=== PATIENT | male | born 1955 | race Caucasian/White ===

== ENCOUNTER 2022-09-24 08:12 | Emergency (ER) | payer MEDICARE, OTHER, SELFPAY ==
[2022-09-24] VITALS (35 sets, daily range): BP systolic 58–123; BP diastolic 33–80; PULSE 116–147; RESP 36; TEMP 36.3–37; O2SAT 88–100; BMI 21.0
[2022-09-24] MEDS: 0.9 % SODIUM CHLORIDE 1000 ml 1,000 ML IV ×2 (08:30→09:30)
--- NOTE | 2022-09-24 08:34 | ED.GENADULT ---
HPI - General Adult General Time Seen by Provider: 08:34 Date Seen: 09/24/22 Chief complaint: Shortness of Breath/Dyspnea Stated complaint: Respiratory distress Time Seen by Provider: 09/24/22 08:33 Source: patient, family, EMS and RN notes reviewed Mode of arrival: EMS Limitations: other (On CPAP due to respiratory distress) History of Present Illness HPI narrative: Patient is a 66-year-old male brought in by EMS from home where he called for increasing difficulty breathing overnight. EMS found him to be in the 70% range and started CPAP. His notes he has maybe coughed a little but it is seemingly been more productive. His appetite is not been good since surgery. Really not eating much but is drinking Gatorade. She notes he has a greater than 50 year history of smoking but they are not aware of a diagnosis of COPD. She states they were recently at the [facility] [place] and she states the doctor mention COPD. They have not noted any fevers. He denies any blood in his stools or dark tarry stools but his states his stools are melanotic. He is 66 years old and [facility] with recent abdominal [facility]. He had an ile[facility] takedown at the [facility] on 09/13/2022. He did resume his Eliquis and Plavix on September 19 and September 18 respectively. He has not taken any of his medicines today. He has had a complex recent history. On 06/12/2021 he was reportedly diagnosed with COVID here. Patient did end up intubated for COVID for 9 days. 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 Then on 09/23/2022 he was transferred from [place] to [place] where they evacuated a clot from his brain long arm and leg per his . When asked if he had a stroke she stated yes he did have a stroke. Sounds as he if had a thrombectomy. Current medications on his list: Eliquis 5 mg b.i.d., atorvastatin 80 mg daily, Plavix 75 mg daily, B12 1000 mcg daily, ferrous sulfate 325 mg daily metoprolol tartrate 25 mg, 1/2 tablet b.i.d. Related Data Previous Rx's Medication Instructions Recorded metoprolol tartrate 25 mg tablet 12.5 mg PO BID #90 tabs 08/05/22 Allergies Allergy/AdvReac Type Severity Reaction Status Date / Time No Known Drug Allergies Allergy Verified 09/24/22 08:20 PFS PFS Social History Smoking Status: Former smoker Do you use any of these nicotine containing products: None How often do you have a drink containing alcohol: 4 or more times a week How many standard drinks containing alcohol do you have on a typical day: 1 or 2 How often do you have six or more drinks on one occasion: Never AUDIT-C Alcohol total score: 4 Non-prescribed substance use: denies use Exam Const: Vital Signs, click to edit/add: Vital Signs - 24 hr 09/24/22 08:20 09/24/22 09:33 09/24/22 08:27 Temperature 98.6 F Pulse Rate Pulse Rate [Apical ] 134 H Respiratory Rate 36 H Blood Pressure 84/60 L Blood Pressure [Le ft Upper Arm] 73/53 L Pulse Oximetry 94 Oxygen Delivery Me thod Room Air CPAP Fraction of Inspir ed Oxygen 09/24/22 08:32 09/24/22 08:33 09/24/22 08:34 Temperature Pulse Rate Pulse Rate [Apical ] Respiratory Rate Blood Pressure 58/33 L 73/57 L 70/54 L Blood Pressure [Le ft Upper Arm] Pulse Oximetry Oxygen Delivery Me thod Fraction of Inspir ed Oxygen 09/24/22 08:36 09/24/22 08:40 09/24/22 08:41 Temperature Pulse Rate 136 H 137 H 137 H Pulse Rate [Apical ] Respiratory Rate Blood Pressure 78/64 L Blood Pressure [Le ft Upper Arm] Pulse Oximetry 99 99 99 Oxygen Delivery Me thod Fraction of Inspir ed Oxygen 09/24/22 08:51 09/24/22 08:56 09/24/22 09:00 Temperature Pulse Rate 137 H 128 H Pulse Rate [Apical ] Respiratory Rate Blood Pressure 76/58 L Blood Pressure [Le ft Upper Arm] Pulse Oximetry 100 97 Oxygen Delivery Me thod Fraction of Inspir ed Oxygen 09/24/22 09:31 09/24/22 09:32 09/24/22 09:40 Temperature Pulse Rate 131 H 134 H Pulse Rate [Apical ] Respiratory Rate Blood Pressure 83/47 L Blood Pressure [Le ft Upper Arm] Pulse Oximetry 94 95 Oxygen Delivery Me thod Fraction of Inspir ed Oxygen 09/24/22 09:42 09/24/22 09:51 09/24/22 09:53 Temperature 97.3 F L Pulse Rate 136 H 142 H Pulse Rate [Apical ] Respiratory Rate Blood Pressure 77/48 L 71/49 L Blood Pressure [Le ft Upper Arm] Pulse Oximetry 96 94 Oxygen Delivery Me thod Fraction of Inspir ed Oxygen 09/24/22 10:04 09/24/22 10:00 09/24/22 10:01 Temperature Pulse Rate 147 H 137 H Pulse Rate [Apical ] Respiratory Rate Blood Pressure 76/53 L Blood Pressure [Le ft Upper Arm] Pulse Oximetry 89 88 Oxygen Delivery Me thod Fraction of Inspir ed Oxygen 0.30 09/24/22 10:10 09/24/22 10:11 09/24/22 10:18 Temperature Pulse Rate 144 H 136 H 136 H Pulse Rate [Apical ] Respiratory Rate Blood Pressure 82/47 L 73/47 L Blood Pressure [Le ft Upper Arm] Pulse Oximetry 95 92 93 Oxygen Delivery Me thod Fraction of Inspir ed Oxygen 09/24/22 10:20 09/24/22 10:21 09/24/22 10:26 Temperature Pulse Rate 137 H 136 H 134 H Pulse Rate [Apical ] Respiratory Rate Blood Pressure 77/34 L 107/72 Blood Pressure [Le ft Upper Arm] Pulse Oximetry 94 95 88 Oxygen Delivery Me thod Fraction of Inspir ed Oxygen 09/24/22 10:30 Temperature Pulse Rate 136 H Pulse Rate [Apical ] Respiratory Rate Blood Pressure Blood Pressure [Le ft Upper Arm] Pulse Oximetry 92 Oxygen Delivery Me thod Fraction of Inspir ed Oxygen Patient is on CPAP, looks pale but is able to talk in short phrases. Sclera clear conjugate gaze. Pupils seem to be equal and round. Moving his extremities purposefully, no noted deficit in strength or sensory at this time. Anteriorly do not hear any crackles, lungs sounds are somewhat distant but no wheezing. Can hear faint underlying heart sounds and he is tachycardic do not appreciate any murmur. Belly seems mildly distended to me but he states he is not having significant tenderness. He has a lower abdominal incision that is without erythema, there is some surrounding bruising but no drainage. I do not feel any masses, patient states his abdomen is not tender when I palpate. He has no lower extremity edema. He is frail appearing, pale appearing. 8:55 a.m.: Seems to have a little bit more color to his cheeks. Has been complaining of severe posterior head and neck pain which he believes is the strap from the CPAP. He unfortunately has a abbott and mustache, he does not want the shaved. He can mobilize his neck. The head and neck started bothering him after the CPAP were put on. Course Course Hospital Course: Patient is hypotensive, respiratory distress. His initial portable chest x-ray my preliminary read shows changes that look COVID like with infiltrates. This could be pneumonia, recurrent COVID or residual change from prior COVID. He has 1 L of normal saline going, nursing staff were attempting to get a 2nd IV and will start a 2nd of L of fluids. I would really like hemoglobin on him to see if he actually needs blood. May need to consider pressors, obviously need to consider infectious etiology as well. We will get a full complement of labs. Have alerted are ED staff that we need to look for an ICU bed. They will start doing so. Reevaluation(s) Reevaluation #1: Patient is going over to get advanced imaging. RT is accompanying him. Nursing staff will just be starting the 2nd L on him. His weight in February was 64 kilos giving him 1920 mL for a 30 mils per kilos bolus for sepsis. Hopefully we will have hemoglobin quickly here. I have discussed with his family that is here that at this point ICU beds are seemingly not available. We have contacted the [facility], [place], [place], [place]/[facility]. They will be calling [facility], [facility] facilities. I have reviewed with family that if Tima is getting into further medical difficulties and we are not able to secure an appropriate medical facility, I have significant limits to any advanced level cares that he might need. At this time, I am quite concerned about his outcome if we cannot secure and advanced level of care for him quickly. Time: 09:16 Reevaluation #2: Have reviewed with patient that he has sepsis, probably from a pulmonary source with pneumonia. The band is really bothering the back of his head from the CPAP but reviewed with him he needs to keep that on. Will try a dose of Tylenol, think he stable enough to take the CPAP off briefly to get a dose of Tylenol. He is still tachypneic, potassium has come back low. I have ordered Zosyn and vancomycin for sepsis protocol. Also ordered some IV potassium as his potassium came back at 2.7. His current hemoglobin [facility] 8.[facility] 7.8. Thus, does not need a transfusion at this point. His chest CT certainly is looking like there is pneumonia. Am awaiting the formal over reads of his CT imaging. Time: 09:59 Reevaluation #3: Was just in with patient. He really wanted some Tylenol for the pain in the back of his head. We did order a 1000 mg oral Tylenol and patient took that was some water quite easily. Taking off the mask for the CPAP though just briefly did cause hypoxia into the mid to upper 80s. We got his mask back on quickly. He had a little period of compensatory increased tachypnea into the 40s but then back down into the 30s where he had been stable. His coloration has improved, he is remaining tachypneic but is still quite lucid and conversive with us. He has started the vancomycin, I believe Zosyn is complete. He has some potassium 10 mEq IV started. We did start norepinephrine and at our lowest dosage on our protocol, blood pressure was up to 107 systolic, initial map in the 70s. We will continue to follow this. He has completed his 2 L of normal saline. He will be getting more volume with the antibiotics and the potassium going in. Have discussed intubation with patient and would prefer to not have to be intubated. Respiratory therapy and I have discussed the situation, feel that he is not decompensating at this time, he is getting treatments to intervene for his pneumonia and sepsis. He is not quite at the 2 hour marker to repeat a lactate, EMS will be here momentarily for transfer. I feel it is reasonable to continue him on this airway management, give him a. To see if he may improve with initiation of the antibiotics. We are not going to delay his transfer to await our 2 hour lactate. Time: 10:32 Consultations Consultation #1: 12 minutes was spent on the phone with Dr. Nieves from [facility]. Patient has been accepted to the ICU there. Will make a disc of the images to make sure Dr. Nieves gets these. He did discuss intubation with me. I will talk to the patient about that again. Patient was unsure when he initially came in about being intubated. I will also talked to respiratory therapy as patient just came back from getting his CT scans. I have not seen him since he was over in the scanner. Will need to reassess this. Did discuss with Dr. Nieves that I may need to initiate nor epinephrine in this patient as well. Reviewed some of the labs that were coming back while I was on the phone. It appears that this is sepsis for this patient with underlying etiology being pneumonia. Time: 09:34 Vital Signs Vital signs: Initial Vital Signs Temperature 98.6 F 09/24/22 08:20 Temperature Source Temporal Artery Scan 09/24/22 08:20 Pulse Rate 134 H 09/24/22 08:20 Pulse Rhythm 09/24/22 08:20 Respiratory Rate 36 H 09/24/22 08:20 Blood Pressure 73/53 L 09/24/22 08:20 Blood Pressure Mean 59 09/24/22 08:20 Blood Pressure Position Supine 09/24/22 08:20 Oxygen Delivery Method CPAP 09/24/22 08:20 Vital Signs Temperature 98.6 F 09/24/22 08:20 Pulse Rate 134 H 09/24/22 08:20 Respiratory Rate 36 H 09/24/22 08:20 Blood Pressure 73/53 L 09/24/22 08:20 Oxygen Delivery Method CPAP 09/24/22 08:20 Temperature 97.3 F L 09/24/22 09:53 Pulse Rate 136 H 09/24/22 10:30 Respiratory Rate 36 H 09/24/22 08:20 Blood Pressure 107/72 09/24/22 10:26 Pulse Oximetry 92 09/24/22 10:30 Oxygen Delivery Method CPAP 09/24/22 08:20 Fraction of Inspired Oxygen 0.30 09/24/22 10:04 Medical Decision Making Lab Data Lab results reviewed: Yes I reviewed the patient's lab results Labs: Lab Results 09/24/22 09/24/22 09/24/22 Range/Units 08:41 09:02 09:02 WBC 4.86 (4.50-11.00) K/uL RBC 2.88 L (4.30-5.90) m/uL Hgb 8.9 L (13.5-17.5) gm/dL Hct 27.1 L (37.0-53.0) % MCV 94 (80-100) fL MCH 31 (26-34) pg MCHC 33 (32-36) gm/dL RDW Coeff of Silva 14.1 (11.5-15.5) % Plt Count 646 H (140-440) K/uL Neut % (Auto) 85.8 H (42.0-72.0) % Lymph % (Auto) 10.5 L (20-44) % [place] % (Auto) 3.1 (0.0-11.0) % Eos % (Auto) 0.0 (0.0-7.0) % Baso % (Auto) 0.4 (0.0-3.0) % Neut # (Auto) 4.20 (1.7-7.0) K/uL Lymph # (Auto) 0.50 L (0.90-2.90) K/uL [place] # (Auto) 0.20 (0.00-0.90) K/UL Eos # (Auto) 0.00 (0.00-0.50) K/uL Baso # (Auto) 0.02 (0.00-0.30) K/uL Diff Slide Review Acceptable Review (Acceptable) ESR 102 H (2-15) mm/hr VBG pH (7.32-7.43) VBG pCO2 (40-50) mmHG VBG pO2 (25-47) mmHG VBG HCO3 (21-28) mmol/L Sodium (135-149) mmol/L Potassium (3.6-5.1) mmol/L Chloride (96-114) mmol/L Carbon Dioxide (20-32) mmol/L BUN (7-30) mg/dL Creatinine (0.5-1.5) mg/dL Estimated Creat Clear Estimated GFR ml/min Glucose (60-115) mg/dL Lactate (0.5-1.9) mmol/L Calcium (8.4-10.6) mg/dL Magnesium (1.5-2.6) mg/dL Total Bilirubin (0.1-1.5) mg/dL AST (12-35) U/L ALT (4-50) U/L Alkaline Phosphatase (40-150) U/L C-Reactive Protein (0.5-1.0) mg/dL NT-Pro-B Natriuret Pep pg/mL Total Protein (6.0-8.3) g/dL Albumin (3.3-5.0) g/dL Procalcitonin (<0.50) ng/mL Urine Color (Yellow) Urine Appearance (Clear) Urine pH (5.0-8.5) Ur Specific Emmet (1.000-1.030) Urine Protein (Negative) Urine Glucose (UA) (Negative) Urine Ketones (Negative) Urine Blood (Negative) Urine Nitrite (Negative) Urine Bilirubin (Negative) Urine Urobilinogen (0.2-1.0) Ur Leukocyte Esterase (Negative) Urine RBC (0-2) Urine WBC (0-5) Ur Squamous Epith Cells (None-Few) Amorphous Sediment (None) Urine Bacteria (None) SARS-CoV-2 (PCR) Negative SARS-CoV-2 (Negative) Influenza Type A (PCR) Negative PCR FLU A (Negative) Influenza Type B (PCR) Negative PCR FLU B (Negative) RSV (PCR) Negative PCR RSV (Negative) POC Troponin I (0.01-0.04) ng/ml 09/24/22 09/24/22 09/24/22 Range/Units 09:02 09:02 09:02 WBC (4.50-11.00) K/uL RBC (4.30-5.90) m/uL Hgb (13.5-17.5) gm/dL Hct (37.0-53.0) % MCV (80-100) fL MCH (26-34) pg MCHC (32-36) gm/dL RDW Coeff of Silva (11.5-15.5) % Plt Count (140-440) K/uL Neut % (Auto) (42.0-72.0) % Lymph % (Auto) (20-44) % [place] % (Auto) (0.0-11.0) % Eos % (Auto) (0.0-7.0) % Baso % (Auto) (0.0-3.0) % Neut # (Auto) (1.7-7.0) K/uL Lymph # (Auto) (0.90-2.90) K/uL [place] # (Auto) (0.00-0.90) K/UL Eos # (Auto) (0.00-0.50) K/uL Baso # (Auto) (0.00-0.30) K/uL Diff Slide Review (Acceptable) ESR (2-15) mm/hr VBG pH (7.32-7.43) VBG pCO2 (40-50) mmHG VBG pO2 (25-47) mmHG VBG HCO3 (21-28) mmol/L Sodium 134 L (135-149) mmol/L Potassium 2.7 L* (3.6-5.1) mmol/L Chloride 106 (96-114) mmol/L Carbon Dioxide 15 L (20-32) mmol/L BUN 36 H (7-30) mg/dL Creatinine 1.7 H (0.5-1.5) mg/dL Estimated Creat Clear 37.84 Estimated GFR 44 ml/min Glucose 110 (60-115) mg/dL Lactate 7.1 H* (0.5-1.9) mmol/L Calcium 6.9 L (8.4-10.6) mg/dL Magnesium 2.0 (1.5-2.6) mg/dL Total Bilirubin 3.1 H (0.1-1.5) mg/dL AST 40 H (12-35) U/L ALT 46 (4-50) U/L Alkaline Phosphatase 49 (40-150) U/L C-Reactive Protein 25.0 H (0.5-1.0) mg/dL NT-Pro-B Natriuret Pep 674 pg/mL Total Protein 5.3 L (6.0-8.3) g/dL Albumin 2.5 L (3.3-5.0) g/dL Procalcitonin 9.90 H (<0.50) ng/mL Urine Color (Yellow) Urine Appearance (Clear) Urine pH (5.0-8.5) Ur Specific Emmet (1.000-1.030) Urine Protein (Negative) Urine Glucose (UA) (Negative) Urine Ketones (Negative) Urine Blood (Negative) Urine Nitrite (Negative) Urine Bilirubin (Negative) Urine Urobilinogen (0.2-1.0) Ur Leukocyte Esterase (Negative) Urine RBC (0-2) Urine WBC (0-5) Ur Squamous Epith Cells (None-Few) Amorphous Sediment (None) Urine Bacteria (None) SARS-CoV-2 (PCR) (Negative) Influenza Type A (PCR) (Negative) Influenza Type B (PCR) (Negative) RSV (PCR) (Negative) POC Troponin I (0.01-0.04) ng/ml 09/24/22 09/24/22 09/24/22 Range/Units 09:02 09:02 09:55 WBC (4.50-11.00) K/uL RBC (4.30-5.90) m/uL Hgb (13.5-17.5) gm/dL Hct (37.0-53.0) % MCV (80-100) fL MCH (26-34) pg MCHC (32-36) gm/dL RDW Coeff of Silva (11.5-15.5) % Plt Count (140-440) K/uL Neut % (Auto) (42.0-72.0) % Lymph % (Auto) (20-44) % [place] % (Auto) (0.0-11.0) % Eos % (Auto) (0.0-7.0) % Baso % (Auto) (0.0-3.0) % Neut # (Auto) (1.7-7.0) K/uL Lymph # (Auto) (0.90-2.90) K/uL [place] # (Auto) (0.00-0.90) K/UL Eos # (Auto) (0.00-0.50) K/uL Baso # (Auto) (0.00-0.30) K/uL Diff Slide Review (Acceptable) ESR (2-15) mm/hr VBG pH 7.271 L (7.32-7.43) VBG pCO2 37 L (40-50) mmHG VBG pO2 56.5 H (25-47) mmHG VBG HCO3 17 L (21-28) mmol/L Sodium (135-149) mmol/L Potassium (3.6-5.1) mmol/L Chloride (96-114) mmol/L Carbon Dioxide (20-32) mmol/L BUN (7-30) mg/dL Creatinine (0.5-1.5) mg/dL Estimated Creat Clear Estimated GFR ml/min Glucose (60-115) mg/dL Lactate (0.5-1.9) mmol/L Calcium (8.4-10.6) mg/dL Magnesium (1.5-2.6) mg/dL Total Bilirubin (0.1-1.5) mg/dL AST (12-35) U/L ALT (4-50) U/L Alkaline Phosphatase (40-150) U/L C-Reactive Protein (0.5-1.0) mg/dL NT-Pro-B Natriuret Pep pg/mL Total Protein (6.0-8.3) g/dL Albumin (3.3-5.0) g/dL Procalcitonin (<0.50) ng/mL Urine Color Yellow (Yellow) Urine Appearance Clear (Clear) Urine pH 5.5 (5.0-8.5) Ur Specific Emmet 1.020 (1.000-1.030) Urine Protein 2+ A (Negative) Urine Glucose (UA) Negative (Negative) Urine Ketones Negative (Negative) Urine Blood 1+ A (Negative) Urine Nitrite Negative (Negative) Urine Bilirubin 2+ A (Negative) Urine Urobilinogen 2.0 A (0.2-1.0) Ur Leukocyte Esterase Negative (Negative) Urine RBC 0-2 (0-2) Urine WBC 0-2 (0-5) Ur Squamous Epith Cells Few (None-Few) Amorphous Sediment Moderate A (None) Urine Bacteria Many A (None) SARS-CoV-2 (PCR) (Negative) Influenza Type A (PCR) (Negative) Influenza Type B (PCR) (Negative) RSV (PCR) (Negative) POC Troponin I 0.01 (0.01-0.04) ng/ml Blood cultures, urine culture pending. Imaging Data CT scan - head: Attestation: I have reviewed the pertinent imaging results. My impression: A my preliminary read of this patient's head CT, see no acute bleed. Need to await radiology over read as well. Radiologist's impression: Patient: TIMA ANN Facility:?[facility] Patient ID:?[id number] Site Patient ID:?[id number]. Site :?[id number] Study:?CT Head WO-09/24/2022 9:33:03 AM Ordering Physician:Willie Godoy Final Report: INDICATION: c/o severe DANIELLE INDICATION: Severe headache. TECHNIQUE: CT head without contrast. Coronal/sagittal reconstruction images. COMPARISON: None FINDINGS: CSF spaces: Within normal limits for age. Brain parenchyma: The albrecht-white differentiation is normal. No sign of mass, hemorrhage, or midline shift. Skull base and calvarium: The visualized paranasal sinuses and mastoid air cells are clear. The visualized orbits are grossly unremarkable. No skull fractures. IMPRESSION: 1. There is no acute intracranial hemorrhage, shift of midline structures, or mass effect. 2. No hyperdense MCA sign. 3. No acute loss of albrecht-white matter differentiation is seen. Dictated by Noé Martinez MD @ 09/24/2022 10:00:26 AM Please note that all CT scans at this facility use dose modulation, iterative reconstruction, and/or weight-based dosing when appropriate to reduce radiation dose to as low as reasonably achievable. Dictated by: Noé Martinez MD @ 09/24/2022 10:00:33 (Electronic Signature) Chest x-ray: Attestation: I have reviewed the pertinent imaging results. My impression: See a multifocal infiltrate on the right side. Radiologist's impression: Patient: TIMA ANN Facility:?[facility] Patient ID:?[id number] Site Patient ID:?[id number]. Site :?[id number] Study:?XRay Chest PCXR-09/24/2022 8:52:50 AM Ordering Physician:Willie Godoy Final Report: INDICATION: respiratory distress HISTORY: Respiratory distress. COMPARISON: None. TECHNIQUE: Chest, 1 view. FINDINGS: There is volume loss in the right hemithorax, with mixed interstitial/alveolar opacities, most pronounced in the right lower lung zone. No pneumothorax or deep sulcus sign. Central airway is normal. No sizable pleural effusion. library monitor leads overlie the patient. Heart size and pulmonary vasculature are within normal limits IMPRESSION: 1. Mild volume loss with interstitial and alveolar opacities in the right lung. 2. When clinically appropriate, consider CT scan for further assessment. Dictated by Noé Martinez MD @ 09/24/2022 9:35:01 AM Dictated by: Noé Martinez MD @ 09/24/2022 09:35:08 (Electronic Signature) ECG Data Attestation: I personally reviewed and interpreted this ECG as follows: (Sinus tachycardia, 136 beats per minute. Nonspecific ST segment changes. QT corrected 460 milliseconds.) Prior ECG tracings: not available for review Critical Care Time Critical Care Time Critical Care Time: Yes Attestation: The patient required my highest level preparedness to intervene emergently and I personally spent this critical care time directly and personally managing the patient. This critical care time included: Obtaining a history; Examining the patient; Pulse oximetry; Ordering and reviewing of studies; Arranging urgent treatment with development of a management plan; Evaluation of patients response to treatment; Frequent reassessment discussions with other providers. This critical care time was performed to assess and manage the high probability of imminent life-threatening deterioration that could result in multiorgan failure. It was exclusive of separate billable procedures and treating other patients and teaching time. Total Critical Care Time in Minutes: 145 Discharge Plan Discharge Clinical Impression: Severe sepsis, Pneumonia Patient Disposition: [facility] Condition: Critical Prescriptions: No Action metoprolol tartrate 25 mg tablet 12.5 mg PO BID Qty: 90 0RF Follow Up/Referrals: Kim Flores APRN, SLOT ATTENDANT [Primary Care Provider] - Discharge Comment: Transfer to [facility] in [place]
--- NOTE | 2022-09-24 08:41 | CRLHL7_ITS ---
For Patients: As a result of the Century Cures Act, medical imaging exams and procedure reports are released immediately into your electronic medical record. You may view this report before your referring provider. If you have questions, please contact your health care provider. INDICATION: respiratory distress HISTORY: Respiratory distress. COMPARISON: None. TECHNIQUE: Chest, 1 view. FINDINGS: There is volume loss in the right hemithorax, with mixed interstitial/alveolar opacities, most pronounced in the right lower lung zone. No pneumothorax or deep sulcus sign. Central airway is normal. No sizable pleural effusion. monitor tech leads overlie the patient. Heart size and pulmonary vasculature are within normal limits IMPRESSION: 1. Mild volume loss with interstitial and alveolar opacities in the right lung. 2. When clinically appropriate, consider CT scan for further assessment. Dictated by Noé Martinez MD @ 09/24/2022 9:35:01 AM Dictated by: Noé Martinez MD @ 09/24/2022 09:35:08 (Electronically Signed)
--- NOTE | 2022-09-24 08:43 | CRLHL7_ITS ---
For Patients: As a result of the Century Cures Act, medical imaging exams and procedure reports are released immediately into your electronic medical record. You may view this report before your referring provider. If you have questions, please contact your health care provider. Indication: Respiratory distress recent ileostomy reversal Technique: Contrast CT chest abdomen and pelvis Comparison: CT chest and pelvis 10/28/2021 Findings: Normal caliber thoracic aorta. No pulmonary emboli are seen. Heart size is normal. There is no pericardial effusion. Centrilobular emphysema. Diffuse ill-defined centrilobular opacities primarily within right, to a lesser degree within the left lower lobe. There is some minimal interlobular septal thickening. Again seen is subpleural rounded opacity in the peripheral right upper lobe on series 8, image 56 is not significantly changed. Again seen is bronchiectasis and mild consolidation posterior right upper lobe this is decreased from the prior study with some cystic changes. Trace effusions. Filled esophagus. Pneumoperitoneum which likely is related to recent surgery. Right hemicolectomy. High density material at the ileal colo anastomosis could be the residual retained contrast. There is gaseous distension of the colon. There is collection of extraluminal gas at the anastomotic site anastomotic leak is not excluded. There is moderate amount of free fluid throughout the abdomen and pelvis there is peritoneal mild enhancement peritonitis not excluded. There is diffuse small bowel wall thickening which could be related to enteritis or reactive changes from possible peritonitis There is atherosclerotic changes of the abdominal aorta no aneurysm. Kidneys unremarkable too small to characterize low-attenuation lesions in the kidneys. Low-density lesion left hepatic lobe decreased in size from prior study incompletely assessed. Pancreas adrenal glands spleen unremarkable. Cholelithiasis. No suspicious bony lesions. Impression: 1. Right hemicolectomy with ileocolonic anastomosis. Gaseous distension of the colon could be related to ileus or mild component of obstruction. A collection of extraluminal air near the anastomosis site leak is not excluded. Left moderate to large amount of ascites there is peritoneal enhancement is could be related to peritonitis. There is diffuse bowel wall thickening of small bowel could be related to enteritis or reactive changes from possible peritonitis. 2. Pneumoperitoneum likely related to recent surgery. 3. Ill-defined centrilobular opacities diffusely in the right upper lobe to a lesser degree on the left could be infectious inflammatory could be related to pneumonia, pulmonary edema. Tiny effusions. 4. Subpleural right upper lobe opacity unchanged from prior study continued follow-up is recommended. Please note that all CT scans at this facility use dose modulation, iterative reconstruction, and/or weight-based dosing when appropriate to reduce radiation dose to as low as reasonably achievable. Dictated by Sol Reynolds MD @ 09/24/2022 10:46:26 AM (Electronically Signed)
--- NOTE | 2022-09-24 08:44 | CRLHL7_ITS ---
For Patients: As a result of the Cures Act, medical imaging exams and procedure reports are released immediately into your electronic medical record. You may view this report before your referring provider. If you have questions, please contact your health care provider. INDICATION: c/o severe DANIELLE INDICATION: Severe headache. TECHNIQUE: CT head without contrast. Coronal/sagittal reconstruction images. COMPARISON: None FINDINGS: CSF spaces: Within normal limits for age. Brain parenchyma: The albrecht-white differentiation is normal. No sign of mass, hemorrhage, or midline shift. Skull base and calvarium: The visualized paranasal sinuses and mastoid air cells are clear. The visualized orbits are grossly unremarkable. No skull fractures. IMPRESSION: 1. There is no acute intracranial hemorrhage, shift of midline structures, or mass effect. 2. No hyperdense MCA sign. 3. No acute loss of albrecht-white matter differentiation is seen. Dictated by Noé Martinez MD @ 09/24/2022 10:00:26 AM Please note that all CT scans at this facility use dose modulation, iterative reconstruction, and/or weight-based dosing when appropriate to reduce radiation dose to as low as reasonably achievable. Dictated by: Noé Martinez MD @ 09/24/2022 10:00:33 (Electronically Signed)
[2022-09-24 09:19] LABS: Basophils Absolute Auto 0.02 K/uL (0.00-0.30); Basophils Percent Auto 0.4 % (0.0-3.0); HCO3 VBG 17 mmol/L (21-28); Hematocrit 27.1 % (37.0-53.0); Hemoglobin* 8.9 gm/dL (13.5-17.5); Immature Granulocytes Abs Auto 0.01 K/uL (0.00-0.30); Immature Granulocytes Pct Auto 0.2 %; Lymphocytes Percent Auto 10.5 % (20-44); Mean Corpuscular HGB Conc 33 gm/dL (32-36); Mean Corpuscular Hemoglobin 31 pg (26-34); Mean Corpuscular Volume 94 fL (80-100); Monocytes Percent Auto 3.1 % (0.0-11.0); Neutrophils Percent Auto 85.8 % (42.0-72.0); PCO2 VBG 37 mmHG (40-50); PO2 VBG 56.5 mmHG (25-47); Platelet Count* 646 K/uL (140-440); RDW Coefficient of Variation % 14.1 % (11.5-15.5); Red Blood Count 2.88 m/uL (4.30-5.90); White Blood Count* 4.86 K/uL (4.50-11.00); pH VBG 7.271 (7.32-7.43)
[2022-09-24 09:23] LABS: Lactate* 7.1 mmol/L (0.5-1.9); Troponin, Point-of-Care* 0.01 ng/ml (0.01-0.04)
[2022-09-24 09:33] LABS: Slide Review Reflex Yes
[2022-09-24 09:33] LABS: PCR FLU A Negative PCR FLU A (Negative); PCR FLU B Negative PCR FLU B (Negative); PCR RSV Negative PCR RSV (Negative)
[2022-09-24 09:35] LABS: SARS PCR* Negative SARS-CoV-2 (Negative)
[2022-09-24 09:38] LABS: Albumin* 2.5 g/dL (3.3-5.0); Chloride* 106 mmol/L (96-114); Sodium* 134 mmol/L (135-149)
[2022-09-24 09:40] LABS: Creatinine* 1.7 mg/dL (0.5-1.5); Est. Creatinine Clearance* 37.84; Estimated Glomerular Filt Rate 44 ml/min
[2022-09-24 09:41] LABS: Alkaline Phosphatase* 49 U/L (40-150); Aspartate Amino Transferase* 40 U/L (12-35); Bilirubin Total* 3.1 mg/dL (0.1-1.5); Blood Urea Nitrogen* 36 mg/dL (7-30); Carbon Dioxide* 15 mmol/L (20-32); Glucose* 110 mg/dL (60-115); Total Protein* 5.3 g/dL (6.0-8.3)
[2022-09-24 09:42] LABS: Calcium* 6.9 mg/dL (8.4-10.6)
[2022-09-24 09:45] LABS: Slide Review Acceptable Review (Acceptable)
[2022-09-24 09:46] LABS: Potassium* 2.7 mmol/L (3.6-5.1)
--- NOTE | 2022-09-24 09:47 | ED.NURSE ---
Dr Olguin updated on potassium level
[2022-09-24 09:54] LABS: NT Pro B Type NatriureticPept* 674 pg/mL
[2022-09-24] MEDS: PIPERACILLIN/TAZOBACTAM 3.375 GM in 0.9 % SODIUM CHLORIDE Mini-bag 100 ML IVPB (09:54)
[2022-09-24 09:59] LABS: Erythrocyte SedimentationRate* 102 mm/hr (2-15)
[2022-09-24 10:08] LABS: Appearance Urine Clear (Clear); Bilirubin Urine 2+ (Negative); Blood Urine 1+ (Negative); Color Urine Yellow (Yellow); Glucose Urine Negative (Negative); Ketones Urine Negative (Negative); Leukocyte Esterase Urine Negative (Negative); Nitrite Urine Negative (Negative); Protein Urine 2+ (Negative); pH Urine 5.5 (5.0-8.5)
[2022-09-24 10:10] LABS: Alanine Aminotransferase* 46 U/L (4-50)
--- NOTE | 2022-09-24 10:15 | ED.NURSE ---
report was given to danielle marin at [facility]. ems was dispatched.
[2022-09-24 10:16] LABS: RBC Urine 0-2 (0-2); WBC Urine 0-2 (0-5)
[2022-09-24 10:17] LABS: Amorphous Sediment Urine Moderate; Bacteria Urine Many; Squamous Epithelial Cell Urine Few (None-Few)
[2022-09-24] MEDS: POTASSIUM CHLORIDE 10 MEQ/100 ML PIGGYBACK 100 MEQ IVPB (10:23)
[2022-09-24] MEDS: ACETAMINOPHEN 500 MG TABLET 1000 MG PO (10:27)
--- NOTE | 2022-09-24 11:00 | ED.NURSE ---
Pt and belongings transferred to [facility] in [place] via [facility]
--- NOTE | 2022-09-24 23:04 | ED.NURSE ---
Call from lab for critical result: positive blood cultures with gram negative bacteria on one of two blood cultures. Per lab, second blood culture not yet positive. Dr. Welch updated with this information and advises call to [facility] ICU in [place] ([phone]). Call to ICU and gave this information to [employer].
--- NOTE | 2022-09-25 10:24 | ED.NURSE ---
Pre-nino blood and urine culture results faxed to [facility] per hospital request. fax [phone]
== END 2022-09-24 11:00 | disposition short-term general hospital (02) ==
PROVIDERS: Emergency Provider Family Medicine; PCP Nurse Practitioner Family
DX: J18.9 Pneumonia, unspecified organism (principal); A41.9 Sepsis, unspecified organism
CPT/HCPCS: 36415; 70450; 71045; 71260; 74177; 80053; 81001; 82803; 83605; 83735; 83880; 84145; 84484; 85025; 85651; 86140; 87040; 87086; 87186; 87502; 87634; 87635; 93005; 94660; 94761; 96365; 96366; 99284; 99291; 99292; A9270; J2543; J3370; J3480; J7030; J7120; Q9967

== ENCOUNTER 2022-09-24 10:35 | Outpatient (CLI) | payer MEDICARE, OTHER, SELFPAY | END 2022-09-24 10:36 | disposition home or self-care (01) | LOC: AMB 10-04 19:56 | PROVIDERS: PCP Nurse Practitioner Family; Visit Provider Family Medicine | DX: R06.09 Other forms of dyspnea (principal); A41.9 Sepsis, unspecified organism | CPT/HCPCS: A0425; A0426 ==

== ENCOUNTER 2023-03-10 13:39 | Outpatient (CLI) | payer MEDICARE, OTHER, SELFPAY | END 2023-03-10 13:40 | disposition home or self-care (01) | LOC: WOUND 13:39 | PROVIDERS: PCP Nurse Practitioner Family; Visit Provider Nurse Practitioner Family | DX: Z43.2 Encounter for attention to ileostomy (principal); L89.813 Pressure ulcer of head, stage 3; L89.223 Pressure ulcer of left hip, stage 3; T81.32XA Disruption of internal operation (surgical) wound, not elsewhere classified, initial encounter; L89.893 Pressure ulcer of other site, stage 3 | CPT/HCPCS: 99215 ==

== ENCOUNTER 2023-03-17 13:06 | Outpatient (CLI) | payer MEDICARE, OTHER, SELFPAY | END 2023-03-17 13:07 | disposition home or self-care (01) | LOC: WOUND 13:06 | PROVIDERS: PCP Nurse Practitioner Family; Visit Provider Nurse Practitioner Family | DX: Z43.2 Encounter for attention to ileostomy (principal); L89.813 Pressure ulcer of head, stage 3; L89.223 Pressure ulcer of left hip, stage 3; L89.893 Pressure ulcer of other site, stage 3; L89.103 Pressure ulcer of unspecified part of back, stage 3 | CPT/HCPCS: 11042; 11043; 11045; 99213 ==

== ENCOUNTER 2023-04-03 15:42 | Outpatient (CLI) | payer MEDICARE, OTHER, SELFPAY | END 2023-04-03 15:43 | disposition home or self-care (01) | LOC: KYNREF 15:43 | PROVIDERS: PCP Nurse Practitioner Family; Visit Provider Nurse Practitioner Family | DX: R10.9 Unspecified abdominal pain (principal) | CPT/HCPCS: 81015; 87086; 87186 ==

== ENCOUNTER 2023-04-07 12:52 | Outpatient (CLI) | payer MEDICARE, OTHER, SELFPAY | END 2023-04-07 12:53 | disposition home or self-care (01) | LOC: WOUND 12:53 | PROVIDERS: PCP Nurse Practitioner Family; Visit Provider Nurse Practitioner Family | DX: L89.813 Pressure ulcer of head, stage 3 (principal); L89.893 Pressure ulcer of other site, stage 3; L89.103 Pressure ulcer of unspecified part of back, stage 3; L89.323 Pressure ulcer of left buttock, stage 3; Z43.2 Encounter for attention to ileostomy | CPT/HCPCS: 97597; 97598 ==

== ENCOUNTER 2023-04-11 03:59 | Emergency (ER) | payer MEDICARE, OTHER, SELFPAY ==
[2023-04-11 04:06] VITALS: BP 103/71; PULSE 68; RESP 18; TEMP 36.1; O2SAT 98; BMI 17.0
--- NOTE | 2023-04-11 04:28 | ED.GENADULT ---
HPI - General Adult General Chief complaint: Syncope/Fainted Stated complaint: syncope Time Seen by Provider: 04/11/23 04:19 History of Present Illness HPI narrative: Patient is a 67-year-old gentleman with complex past medical history including suprapubic catheter currently on dairy going treatment for UTI with Macrobid who has not been eating and drinking well and had a presyncopal episode at home tonight. Patient has a ostomy which is unchanged. He is tolerating the Macrobid and has open wounds most notably on his occiput which do not appear to be acutely infected at this time. The patient's woke up to help him with wound care and the patient appeared to be ready lose consciousness. Patient states he has no other significant symptoms although he does not answer questions very extensively. He has had no change in her suprapubic catheter and has no pain at this time. Family is concerned that he is not eating or drinking well. Related Data Home Medications Medication Instructions Recorded Confirmed amiodarone 100 mg tablet 200 mg PO QDAY 02/24/23 04/03/23 apixaban 2.5 mg tablet 2.5 mg PO BID 02/24/23 04/03/23 atorvastatin 40 mg tablet 40 mg PO .Bedtime 02/24/23 04/03/23 hydromorphone 4 mg tablet 4 mg PO Q4-6H PRN 02/24/23 04/03/23 oxycodone 5 mg tablet 5 mg PO Q4H PRN 02/24/23 04/03/23 pantoprazole 40 mg tablet,delayed 40 mg PO QDAY 02/24/23 04/03/23 release cyanocobalamin (vitamin B-12) 1,000 mcg PO DAILY 03/04/23 04/03/23 1,000 mcg capsule metoprolol succinate 25 mg 12.5 mg PO DAILY 03/04/23 04/03/23 tablet,extended release 24 hr Previous Rx's Medication Instructions Recorded metoprolol tartrate 25 mg tablet 12.5 mg (1/2 x 25 mg) PO BID #90 08/05/22 tabs ciprofloxacin HCl 500 mg tablet 500 mg PO BID 10 days #20 tabs 04/03/23 nitrofurantoin 100 mg PO Q12H 10 days #20 caps 04/07/23 monohydrate/macrocrystals 100 mg capsule (Macrobid) Allergies Allergy/AdvReac Type Severity Reaction Status Date / Time No Known Drug Allergies Allergy Verified 04/03/23 15:31 Review of Systems Status of ROS: Reports: 6 or more systems reviewed and unremarkable except as noted in History and below [facility] Medical History Stroke ?I63.9 - Cerebral infarction, unspecified (ICD-10) Pulmonary embolism ?I26.99 - Other pulmonary embolism without acute cor pulmonale (ICD-10) Patent foramen ovale ?Q21.12 - Patent foramen ovale (ICD-10) Multiple gallstones ?K80.20 - Calculus of gallbladder without cholecystitis without obstruction (ICD-10) Mass of right lobe of liver ?R16.0 - Hepatomegaly, not elsewhere classified (ICD-10) Atrial fibrillation with rapid ventricular response ?I48.91 - Unspecified atrial fibrillation (ICD-10) Paroxysmal atrial fibrillation ?I48.0 - Paroxysmal atrial fibrillation (ICD-10) ARDS (adult respiratory distress syndrome) ?J80 - Acute respiratory distress syndrome (ICD-10) History of alcohol abuse ?F10.11 - Alcohol abuse, in remission (ICD-10) Surgical History History of urologic surgery ?Z98.890 - Other specified postprocedural states (ICD-10) History of suprapubic catheter ?Z98.890 - Other specified postprocedural states (ICD-10) History of abdominal paracentesis ?Z98.890 - Other specified postprocedural states (ICD-10) Status post ileostomy ?Z93.2 - Ileostomy status (ICD-10) Family History Mother Heart disease Liver disease Other Ovarian cancer Social History Narrative: Former smoker, stopped during hospitalization Smoking Status: Former smoker Do you use any of these nicotine containing products: None Second hand tobacco smoke exposure: No How often do you have a drink containing alcohol: 4 or more times a week How many standard drinks containing alcohol do you have on a typical day: 1 or 2 How often do you have six or more drinks on one occasion: Never AUDIT-C Alcohol total score: 4 Non-prescribed substance use: denies use Exam Narrative: Exam Narrative: EXAM GENERAL: Patient appears cachectic and emaciated Eyes equal round reactive no scleral icterus THYROID: no thyroid nodules or thyromegaly. LYMPH: No supraclavicular or cervical lymphadenopathy. SKIN: Numerous skin tears and abrasions noted. No signs of acute infection. EXT: No dependent lower extremity pedal edema. HEART: Regular rate and rhythm with no murmurs, rubs, or gallops. LUNGS: Clear to auscultation bilaterally with no crackles or wheezes. ABD: Soft, non tender, non distended. Previous ostomy noted with suprapubic catheter also noted. PSYCH: Good eye contact, speech is not pressured. Const: Vital Signs, click to edit/add: Vital Signs - 24 hr 04/11/23 04:06 Temperature 97 F L Pulse Rate [Pulse Oximeter] 68 Respiratory Rate 18 Blood Pressure [Le ft Upper Arm] 103/71 Pulse Oximetry 98 Oxygen Delivery Me thod Room Air Course Course Hospital Course: Patient has a complex history as outlined. This time I did give him a L of normal saline I sent off a CBC basic metabolic panel and troponin. EKG is negative for acute abnormalities on my review. Will see how he feels after his L of saline and we will see his labs look. Vital Signs Vital signs: Initial Vital Signs Temperature 97 F L 04/11/23 04:06 Temperature Source Temporal Artery Scan 04/11/23 04:06 Pulse Rate 68 04/11/23 04:06 Respiratory Rate 18 04/11/23 04:06 Blood Pressure 103/71 04/11/23 04:06 Blood Pressure Mean 81 04/11/23 04:06 Blood Pressure Position Supine 04/11/23 04:06 Pulse Oximetry 98 04/11/23 04:06 Oxygen Delivery Method Room Air 04/11/23 04:06 Vital Signs Temperature 97 F L 04/11/23 04:06 Pulse Rate 68 04/11/23 04:06 Respiratory Rate 18 04/11/23 04:06 Blood Pressure 103/71 04/11/23 04:06 Pulse Oximetry 98 04/11/23 04:06 Oxygen Delivery Method Room Air 04/11/23 04:06 Temperature 97 F L 04/11/23 04:06 Pulse Rate 68 04/11/23 04:06 Respiratory Rate 18 04/11/23 04:06 Blood Pressure 103/71 04/11/23 04:06 Pulse Oximetry 98 04/11/23 04:06 Oxygen Delivery Method Room Air 04/11/23 04:06 Medical Decision Making MDM Narrative Medical decision making narrative: Patient is a complex 67-year-old gentleman comes in today after not feeling well with the urinary tract infection. UTI is growing out a Staph hominis which should be sensitive to his current Macrobid. His labs are reassuring with the exception of mild pre renal azotemia with a slight bump in his creatinine. He does have obvious cachexia as well as skin lesions suprapubic catheter in ostomy which are not acutely a bother him at this time. I did review his EKG and his troponin. His laboratory studies otherwise reasonably stable. I did give him 2 L of normal saline and recommended discharge with outpatient follow-up. I do note that his anion gap is 15 prior to hydration. Differential Diagnosis Differential Diagnosis: UTI CELLULITIS SEPSIS ACUTE MYOCARDIAL INFARCTION ANEMIA FAILURE TO THRIVE Lab Data Labs: Lab Results 04/11/23 Range/Units 04:48 WBC 8.98 (4.50-11.00) K/uL RBC 4.71 (4.30-5.90) m/uL Hgb 12.3 L (13.5-17.5) gm/dL Hct 37.9 (37.0-53.0) % MCV 81 (80-100) fL MCH 26 (26-34) pg MCHC 33 (32-36) gm/dL RDW Coeff of Silva 17.4 H (11.5-15.5) % Plt Count 414 (140-440) K/uL Neut % (Auto) 80.0 H (42.0-72.0) % Lymph % (Auto) 10.0 L (20-44) % [place] % (Auto) 7.1 (0.0-11.0) % Eos % (Auto) 0.8 (0.0-7.0) % Baso % (Auto) 0.3 (0.0-3.0) % Neut # (Auto) 7.20 H (1.7-7.0) K/uL Lymph # (Auto) 0.90 (0.90-2.90) K/uL [place] # (Auto) 0.60 (0.00-0.90) K/UL Eos # (Auto) 0.07 (0.00-0.50) K/uL Baso # (Auto) 0.03 (0.00-0.30) K/uL Sodium 132 L (135-149) mmol/L Potassium 4.1 (3.6-5.1) mmol/L Chloride 102 (96-114) mmol/L Carbon Dioxide 15 L (20-32) mmol/L BUN 48 H (7-30) mg/dL Creatinine 1.5 (0.5-1.5) mg/dL Estimated Creat Clear 35.26 Estimated GFR 51 ml/min Glucose 124 H (60-115) mg/dL Calcium 9.6 (8.4-10.6) mg/dL Troponin I < 0.01 L (0.01-0.04) ng/mL Discharge Plan Discharge Clinical Impression: Dehydration Patient Disposition: Home w/ Parent or Adult Condition: Stable Instructions: Dehydration (ED) Additional Instructions: Continue current medications Continue outpatient follow-up Hydrate as tolerated home. Activity Level: Activity as Tolerated Discharge Diet: Regular Prescriptions: No Action atorvastatin 40 mg tablet 40 mg PO .Bedtime Patient Comments: Patient is taking Atorvastatin 80mg at bedtime. amiodarone 100 mg tablet 200 mg PO QDAY Patient Comments: per spouse, taking 200 mg tablet daily. hydromorphone 4 mg tablet 4 mg PO Q4-6H PRN Patient Comments: instructions: Take 1 tab 60 min before dressing/ileostomy bag changes. oxycodone 5 mg tablet 5 mg PO Q4H PRN pantoprazole 40 mg tablet,delayed release (DR/EC) 40 mg PO QDAY apixaban 2.5 mg tablet 2.5 mg PO BID metoprolol succinate 25 mg tablet extended release 24 hr 12.5 mg PO DAILY cyanocobalamin (vitamin B-12) 1,000 mcg capsule 1,000 mcg PO DAILY metoprolol tartrate 25 mg tablet 12.5 mg PO BID Qty: 90 0RF Patient Comments: metoprolol succinate ER 25 mg, take 0.5 tablet (12.5 mg) daily. ciprofloxacin HCl 500 mg tablet 500 mg PO BID 10 Days Qty: 20 0RF nitrofurantoin monohyd/m-cryst [Macrobid] 100 mg capsule 100 mg PO Q12H 10 Days Qty: 20 0RF Rx Instructions: must administer with a meal/food Follow Up/Referrals: Kim Flores, MALG[place]ZATA, [employer] [Primary Care Provider] - Stand Alone Forms: MyHealth Info Instructions
[2023-04-11] MEDS: 0.9 % SODIUM CHLORIDE 1000 ml 1,000 ML IV ×2 (04:50→05:44)
[2023-04-11 05:04] LABS: Basophils Absolute Auto 0.03 K/uL (0.00-0.30); Basophils Percent Auto 0.3 % (0.0-3.0); Eosinophils Absolute Auto 0.07 K/uL (0.00-0.50); Eosinophils Percent Auto 0.8 % (0.0-7.0); Hematocrit 37.9 % (37.0-53.0); Hemoglobin* 12.3 gm/dL (13.5-17.5); Immature Granulocytes Abs Auto 0.16 K/uL (0.00-0.30); Immature Granulocytes Pct Auto 1.8 %; Mean Corpuscular HGB Conc 33 gm/dL (32-36); Mean Corpuscular Hemoglobin 26 pg (26-34); Mean Corpuscular Volume 81 fL (80-100); Monocytes Percent Auto 7.1 % (0.0-11.0); Platelet Count* 414 K/uL (140-440); RDW Coefficient of Variation % 17.4 % (11.5-15.5); Red Blood Count 4.71 m/uL (4.30-5.90); White Blood Count* 8.98 K/uL (4.50-11.00)
[2023-04-11 05:07] LABS: Chloride* 102 mmol/L (96-114); Potassium* 4.1 mmol/L (3.6-5.1); Sodium* 132 mmol/L (135-149)
[2023-04-11 05:10] LABS: Blood Urea Nitrogen* 48 mg/dL (7-30); Calcium* 9.6 mg/dL (8.4-10.6); Carbon Dioxide* 15 mmol/L (20-32); Creatinine* 1.5 mg/dL (0.5-1.5); Est. Creatinine Clearance* 35.26; Estimated Glomerular Filt Rate 51 ml/min; Glucose* 124 mg/dL (60-115); Slide Review Reflex No
[2023-04-11 05:22] LABS: Troponin I* < 0.01 ng/mL (0.01-0.04)
[2023-04-11 05:47] VITALS: BP 113/65; PULSE 59; RESP 18; O2SAT 99
[2023-04-11 06:26] VITALS: BP 117/67; PULSE 61; RESP 18; TEMP 36.1; O2SAT 98
== END 2023-04-11 06:50 | disposition home or self-care (01) ==
PROVIDERS: Emergency Provider Internal Medicine; PCP Nurse Practitioner Family
DX: E86.0 Dehydration (principal)
CPT/HCPCS: 36415; 80048; 84484; 85025; 93005; 99283; 99284; J7030

== ENCOUNTER 2023-04-20 09:35 | Outpatient (CLI) | payer MEDICARE, OTHER, SELFPAY | END 2023-04-20 09:36 | disposition home or self-care (01) | LOC: WOUND 09:35 | PROVIDERS: PCP Nurse Practitioner Family; Visit Provider Nurse Practitioner Family | DX: L89.893 Pressure ulcer of other site, stage 3 (principal); L89.813 Pressure ulcer of head, stage 3; L89.223 Pressure ulcer of left hip, stage 3 | CPT/HCPCS: 11042; 11045 ==

== ENCOUNTER 2023-04-27 09:56 | Outpatient (CLI) | payer MEDICARE, OTHER, SELFPAY ==
[2023-04-27 11:35] LABS: Appearance Urine Turbid (Clear); Bilirubin Urine Negative (Negative); Blood Urine 3+ (Negative); Color Urine Yellow (Yellow); Glucose Urine Negative (Negative); Ketones Urine Negative (Negative); Leukocyte Esterase Urine 3+ (Negative); Nitrite Urine Negative (Negative); Protein Urine 3+ (Negative); Urobilinogen Urine 0.2 (0.2-1.0)
[2023-04-27 13:57] LABS: Bacteria Urine Moderate; RBC Urine 25-50 (0-2); Squamous Epithelial Cell Urine Few (None-Few); WBC Urine >100 (0-5)
== END 2023-04-27 09:57 | disposition home or self-care (01) ==
PROVIDERS: PCP Nurse Practitioner Family; Visit Provider Nurse Practitioner Family
DX: Z87.440 Personal history of urinary (tract) infections (principal)
CPT/HCPCS: 81003; 81015; 87086; 87186

== ENCOUNTER 2023-05-05 09:22 | Outpatient (CLI) | payer MEDICARE, OTHER, SELFPAY | END 2023-05-05 09:23 | disposition home or self-care (01) | LOC: WOUND 09:22 | PROVIDERS: PCP Nurse Practitioner Family; Visit Provider Nurse Practitioner Family | DX: L89.893 Pressure ulcer of other site, stage 3 (principal); L89.813 Pressure ulcer of head, stage 3; L89.223 Pressure ulcer of left hip, stage 3 | CPT/HCPCS: 11042; 11045 ==

== ENCOUNTER 2023-05-12 10:47 | Outpatient (CLI) | payer MEDICARE, OTHER, SELFPAY | END 2023-05-12 10:48 | disposition home or self-care (01) | LOC: WOUND 10:47 | PROVIDERS: PCP Nurse Practitioner Family; Visit Provider Nurse Practitioner Family | DX: I96 Gangrene, not elsewhere classified (principal); L89.813 Pressure ulcer of head, stage 3; L89.223 Pressure ulcer of left hip, stage 3; L89.893 Pressure ulcer of other site, stage 3; L97.524 Non-pressure chronic ulcer of other part of left foot with necrosis of bone; L97.518 Non-pressure chronic ulcer of other part of right foot with other specified severity; Z43.2 Encounter for attention to ileostomy | CPT/HCPCS: 11042; 11044; 11045; 97597; 97598 ==

== ENCOUNTER 2023-05-19 10:46 | Outpatient (CLI) | payer MEDICARE, OTHER, SELFPAY | END 2023-05-19 10:47 | disposition home or self-care (01) | LOC: WOUND 10:46 | PROVIDERS: PCP Nurse Practitioner Family; Visit Provider Nurse Practitioner Family | DX: L89.813 Pressure ulcer of head, stage 3 (principal); L89.893 Pressure ulcer of other site, stage 3; L89.223 Pressure ulcer of left hip, stage 3 | CPT/HCPCS: 11042 ==

== ENCOUNTER 2023-06-02 09:26 | Outpatient (CLI) | payer OTHER, MEDICARE, SELFPAY | END 2023-06-02 09:27 | disposition home or self-care (01) | LOC: WOUND 09:26 | PROVIDERS: PCP Nurse Practitioner Family; Visit Provider Nurse Practitioner Family | DX: L89.813 Pressure ulcer of head, stage 3 (principal); L89.223 Pressure ulcer of left hip, stage 3; E63.9 Nutritional deficiency, unspecified | CPT/HCPCS: 11042; 97597 ==

== ENCOUNTER 2023-06-06 14:49 | Outpatient (CLI) | payer MEDICARE, OTHER, SELFPAY | END 2023-06-06 14:50 | disposition home or self-care (01) | PROVIDERS: PCP Nurse Practitioner Family; Visit Provider Nurse Practitioner Family | DX: Z01.818 Encounter for other preprocedural examination (principal); Z51.81 Encounter for therapeutic drug level monitoring | CPT/HCPCS: 80053; 84443; 85025 ==

== ENCOUNTER 2023-06-09 10:50 | Outpatient (CLI) | payer OTHER, MEDICARE, SELFPAY | END 2023-06-09 10:51 | disposition home or self-care (01) | LOC: WOUND 10:50 | PROVIDERS: PCP Nurse Practitioner Family; Visit Provider Nurse Practitioner Family | DX: L89.813 Pressure ulcer of head, stage 3 (principal); F10.19 Alcohol abuse with unspecified alcohol-induced disorder; E63.9 Nutritional deficiency, unspecified; Z68.1 Body mass index [BMI] 19.9 or less, adult | CPT/HCPCS: 11042 ==

== ENCOUNTER 2023-06-16 09:13 | Outpatient (CLI) | payer OTHER, MEDICARE, SELFPAY | END 2023-06-16 09:14 | disposition home or self-care (01) | LOC: WOUND 09:13 | PROVIDERS: PCP Nurse Practitioner Family; Visit Provider Nurse Practitioner Family | DX: L89.813 Pressure ulcer of head, stage 3 (principal); E63.9 Nutritional deficiency, unspecified; Z68.1 Body mass index [BMI] 19.9 or less, adult | CPT/HCPCS: 11042 ==

== ENCOUNTER 2023-07-07 14:23 | Outpatient (CLI) | payer OTHER, SELFPAY | END 2023-07-07 14:24 | disposition home or self-care (01) | LOC: WOUND 14:23 | PROVIDERS: PCP Nurse Practitioner Family; Visit Provider Nurse Practitioner Family | DX: L89.813 Pressure ulcer of head, stage 3 (principal); F10.19 Alcohol abuse with unspecified alcohol-induced disorder; E63.9 Nutritional deficiency, unspecified; Z68.1 Body mass index [BMI] 19.9 or less, adult | CPT/HCPCS: 11042 ==

== ENCOUNTER 2023-07-13 10:05 | Outpatient (CLI) | payer OTHER, MEDICARE, SELFPAY ==
[2023-07-13 10:10] LABS: Appearance Urine Cloudy (Clear); Bilirubin Urine Negative (Negative); Blood Urine 3+ (Negative); Color Urine Light yellow (Yellow); Glucose Urine Negative (Negative); Ketones Urine Negative (Negative); Leukocyte Esterase Urine 3+ (Negative); Nitrite Urine Positive (Negative); Protein Urine Negative (Negative); Specific Gravity Urine <= 1.005 (1.000-1.030); Urobilinogen Urine 0.2 (0.2-1.0)
[2023-07-13 13:52] LABS: Bacteria Urine Many; WBC Urine >100 (0-5)
== END 2023-07-13 10:06 | disposition home or self-care (01) ==
PROVIDERS: PCP Nurse Practitioner Family; Visit Provider Nurse Practitioner Family
DX: R82.90 Unspecified abnormal findings in urine (principal)
CPT/HCPCS: 81003; 81015; 87086; 87186

== ENCOUNTER 2023-07-14 14:47 | Outpatient (CLI) | payer OTHER, SELFPAY | END 2023-07-14 14:48 | disposition home or self-care (01) | LOC: WOUND 14:47 | PROVIDERS: PCP Nurse Practitioner Family; Visit Provider Nurse Practitioner Family | DX: L89.813 Pressure ulcer of head, stage 3 (principal) | CPT/HCPCS: 97597 ==

== ENCOUNTER 2023-08-04 13:50 | Outpatient (CLI) | payer OTHER, SELFPAY | END 2023-08-04 13:51 | disposition home or self-care (01) | LOC: WOUND 13:50 | PROVIDERS: PCP Nurse Practitioner Family; Visit Provider Nurse Practitioner Family | DX: L89.813 Pressure ulcer of head, stage 3 (principal); E63.9 Nutritional deficiency, unspecified; Z68.1 Body mass index [BMI] 19.9 or less, adult; F10.19 Alcohol abuse with unspecified alcohol-induced disorder | CPT/HCPCS: 99212 ==

== ENCOUNTER 2023-08-07 16:31 | Outpatient (CLI) | payer MEDICARE, OTHER, SELFPAY | END 2023-08-07 16:32 | disposition home or self-care (01) | PROVIDERS: PCP Nurse Practitioner Family; Referring Provider Nurse Practitioner Family; Visit Provider Nurse Practitioner Family | DX: N39.0 Urinary tract infection, site not specified (principal) | CPT/HCPCS: 81015; 87086; 87186 ==

== ENCOUNTER 2023-09-22 10:29 | Outpatient (CLI) | payer OTHER, MEDICARE, SELFPAY | END 2023-09-22 10:30 | disposition home or self-care (01) | LOC: NFLDREF 13:56 | PROVIDERS: PCP Nurse Practitioner Family; Referring Provider Nurse Practitioner Family; Visit Provider Nurse Practitioner Family | DX: N39.0 Urinary tract infection, site not specified (principal) | CPT/HCPCS: 81015; 87077; 87086; 87186 ==

== ENCOUNTER 2023-10-13 15:30 | Outpatient (CLI) | payer OTHER, MEDICARE, SELFPAY ==
[2023-10-13 11:08] LABS: Appearance Urine Turbid (Clear); Bilirubin Urine Negative (Negative); Blood Urine 3+ (Negative); Color Urine Yellow (Yellow); Glucose Urine Negative (Negative); Ketones Urine Negative (Negative); Leukocyte Esterase Urine 3+ (Negative); Nitrite Urine Positive (Negative); Protein Urine 2+ (Negative); Specific Gravity Urine >= 1.030 (1.000-1.030); Urobilinogen Urine 0.2 (0.2-1.0); pH Urine 5.5 (5.0-8.5)
[2023-10-13 20:48] LABS: Bacteria Urine Many; RBC Urine 25-50 (0-2); Squamous Epithelial Cell Urine Few (None-Few); WBC Urine >100 (0-5)
== END 2023-10-13 15:31 | disposition home or self-care (01) ==
PROVIDERS: PCP Nurse Practitioner Family; Visit Provider Nurse Practitioner Family
DX: N39.0 Urinary tract infection, site not specified (principal)
CPT/HCPCS: 81003; 81015; 87086; 87186